=== PATIENT | male | born 1980 | race Two or more races ===

== ENCOUNTER 2025-03-03 22:41 | Emergency (ER) | payer BC ==
[~2025-03-03] VITALS: Ht 188 cm; Wt 134.2 kg
[2025-03-03 23:17] VITALS: TEMP 36.8; O2SAT 99
[2025-03-04 00:30] LABS: BASOPHILS % 0.3 % (0.0-2.0); EOSINOPHILS % 1.1 % (0.0-5.0); HEMATOCRIT. 44.5 % (42.0-52.0); HEMOGLOBIN. 14.3 g/dL (14.0-18.0); LYMPHOCYTES % 15.1 % (20.0-50.0); MEAN PLATELET VOLUME 8.7 fl (7.4-10.4); MONOCYTES % 5.9 % (2.0-8.0); NEUTROPHILS % 77.6 % (40.0-76.0); PLATELET 203 x1000/uL (130-400); RED BLOOD CELL COUNT 5.18 mill/uL (4.7-6.1); RED CELL DISTRIBUTION WIDTH 13.4 % (11.6-14.6)
[2025-03-04 00:37] LABS: CREATININE 0.8 mg/dL (0.6-1.3); UREA NITROGEN BLOOD 11 mg/dL (9-23)
[2025-03-04 00:38] LABS: TROPONIN I HIGH SENSITIVITY < 4 ng/L (3.0-53)
[2025-03-04] MEDS: KETOROLAC 30MG/ML VIAL IM ONE (01:04)
[2025-03-04] MEDS ORDERED: CYCL10TA21 MT (03:52)
[2025-03-04] MEDS ORDERED: HYDR-4001 MT (03:52)
[2025-03-04] MEDS ORDERED: TOPUD MT (03:52)
[2025-03-04] MEDS ORDERED: IBUP-1525 MT (03:52)
[2025-03-04 04:13] VITALS: BP 141/77; PULSE 74; RESP 18; O2SAT 98
== END 2025-03-04 04:14 | disposition home or self-care (01) ==
LOC: ER 22:41
DX: M54.50 Low back pain, unspecified (principal); N20.0 Calculus of kidney; R06.02 Shortness of breath; Z79.1 Long term (current) use of non-steroidal anti-inflammatories (NSAID); Z79.899 Other long term (current) drug therapy
CPT/HCPCS: 99285; 71045; 36415; 93005; 72131; 80048; 85025; 84484; 96372; J1885